=== PATIENT | female | born 1970 | race Caucasian/White ===

== ENCOUNTER → 2023-03-21 09:16 | Outpatient (BNVA) | payer MEDICAID, SELFPAY | PROVIDERS: Visit Provider Podiatrist Foot & Ankle Surgery | DX: M67.471 Ganglion, right ankle and foot (principal); M67.472 Ganglion, left ankle and foot; E11.8 Type 2 diabetes mellitus with unspecified complications; M77.41 Metatarsalgia, right foot; M77.42 Metatarsalgia, left foot; Z79.84 Long term (current) use of oral hypoglycemic drugs | CPT/HCPCS: 73630; 99204 ==

== ENCOUNTER 2023-04-16 07:53 | Outpatient (CLI) | payer MEDICAID, SELFPAY ==
--- NOTE | 2023-04-16 08:00 | MR_ITS ---
WS: [id number] MRI RIGHT FOOT without CONTRAST. COMPARISON: Radiographs 03/21/2023 Multiplanar, multisequence imaging is performed without contrast. Multilobulated cystic mass centered along the dorsal surface of the foot at the level of the proximal fourth and fifth metatarsals. There are several small cystic components. The largest measures 6 mm a nd is slightly smaller measures 4 mm in diameter. There are additional cysts which are smaller than 4 mm. There is a small bony erosion involving the proximal lateral fourth metatarsal which does not ex tend to the joint. There is mild narrowing of the proximal fourth and fifth metatarsal articulation. No fractures or bone destruction. No erosions at the metatarsal heads. There is no definite extension of the cystic collection into the joint. Flexor and extensor groups are normal. No soft tissue abnormalities otherwise. MR/MR foot RT wo con* [id number] IMPRESSION: 1. Multiloculated cystic mass along the dorsal surface of the foot between the fourth and fifth proximal metatarsals. Favor this is probably a multiloculated ganglion. Differential would include bursitis bursitis. 2. No fracture or marrow edema.
== END 2023-04-16 07:54 | disposition home or self-care (01) ==
LOC: RAD 07:54
PROVIDERS: PCP Nurse Practitioner Family; Visit Provider Podiatrist Foot & Ankle Surgery
DX: M67.471 Ganglion, right ankle and foot (principal)
CPT/HCPCS: 73718

== ENCOUNTER 2023-10-11 08:33 | Outpatient (CLI) | payer MEDICAID, SELFPAY ==
--- NOTE | 2023-10-11 08:36 | XRR_ITS ---
PROCEDURE INFORMATION: Exam: XR Left Shoulder Exam date and time: 10/11/2023 8:42 AM Age: 53 years old Clinical indication: Shoulder; Left; Patient HX: Pain and limited rom for about 1 year; Additional info: Pain in left shoulder TECHNIQUE: Imaging protocol: Radiologic exam of the left shoulder. Views: 2 or more views. COMPARISON: No relevant prior studies available. FINDINGS: Bones/joints: No acute fracture or dislocation. Mild acromioclavicular joint arthropathy. Glenohumeral joint is maintained. Soft tissues: Unremarkable. XR/XR shoulder LT min 2V* [id number] IMPRESSION: 1. No acute findings. 2. Mild AC joint arthropathy.
== END 2023-10-11 08:34 | disposition home or self-care (01) ==
LOC: RAD 08:34
PROVIDERS: PCP Nurse Practitioner Family; Visit Provider Nurse Practitioner Family
DX: M19.012 Primary osteoarthritis, left shoulder (principal)
CPT/HCPCS: 73030

== ENCOUNTER 2024-04-04 08:33 | Outpatient (CLI) | payer MEDICAID, SELFPAY ==
--- NOTE | 2024-04-04 08:45 | MR_ITS ---
WS: [id number] MRI LEFT SHOULDER NONCONTRAST TECHNIQUE: Sagittal T2, coronal T1, T2 and proton density imaging. Axial gradient PDE imaging. CLINICAL INFORMATION: Rotator cuff impingement COMPARISON: None. FINDINGS: Moderate degenerative arthritis AC joint with subacromial spurring. Mild narrowing of the subacromial space. Slight impingement on the distal supraspinatus. Tendinopathy distal supraspinatus. Mild chron ic thinning of the supraspinatus. Normal infraspinatus. Normal teres minor. Normal subscapularis. Bic eps tendon appears intact within the bicipital groove. Intra-articular biceps tendon appears intact. Biceps labral anchor appears intact. Normal bone marrow signal in the humerus and glenoid. MR/MR shoulder LT wo con* [id number] IMPRESSION: 1. Moderate degenerative arthritis AC joint with mild edema. 2. Subacromial spurring with impingement on the supraspinatus with tendinopath y. Mild chronic thinning of the supraspinatus. 3. Rotator cuff is otherwise normal and intact. 4. Normal biceps tendon in the bicipital groove. 5. No other acute findings.
== END 2024-04-04 08:34 | disposition home or self-care (01) ==
LOC: RAD 08:33
PROVIDERS: PCP Nurse Practitioner Family; Visit Provider Physician Assistant
DX: M75.42 Impingement syndrome of left shoulder (principal); M19.012 Primary osteoarthritis, left shoulder; M75.92 Shoulder lesion, unspecified, left shoulder
CPT/HCPCS: 73221

== ENCOUNTER 2024-04-29 12:29 | Outpatient (CLI) | payer MEDICAID, SELFPAY ==
--- NOTE | 2024-04-29 | ECG_ITS ---
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 Interpretive Statements NAME OF STUDY: TREADMILL STRESS ECHOCARDIOGRAM INDICATION: Chest Pressure, PROCEDURE: At the baseline, the patient's blood pressure was 122/81 with a heart rate of 101. The baseline electrocardiogram showed normal sinus rhythm with nonspecific T wave changes. The patient exercised for 5 minutes and 28 seconds on a standard Vince protocol. Patient attained a maximum heart rate of 163 beats per minute(98% of the maximum predicted heart rate) with a blood pressure at the peak exercise of 181/87 mm Hg. The EKG at the peak exercise revealed no significant changes. Patient did not have any chest pain or any significant cardiac arrhythmias with the exercise During the recovery phase, there were no new changes. Blood pressure at the end of the recovery phase was 127/60 mm Hg with a heart rate of 97 per minute. CONCLUSION: 1. Normal EKG response to treadmill exercise 2. No exercise-induced chest pain or cardiac arrhythmia 3. Slightly impaired exercise tolerance, attained a maximum of 7.0 METs Electronically Signed On 05-01-2024 23:06:32 CDT by Ryan Snow M.D. [email or web address]
--- NOTE | 2024-04-29 12:49 | USCV_ITS ---
Leticia Villalta Age: 53 Gender: F : 1970 Exam Date: 04/29/2024 12:58 Ordering Phys: Citlali Salguero NP Technologist: Exam Location: [facility] Indication: CHEST PRESSURE Rhythm: Sinus Patient History: DM, CURRENT SMOKER Cardiac Medications: ARB Medications in past 24 hours: NONE Contrast: Stress Results Protocol: Vince Total dose(mL): Exercise Duration (min:sec): 5:28 METS: 7 Resting HR: 76 Resting BP: 121 / 81 Peak HR: 163 Peak BP: 187 / Max Predicted HR: 166 98 % Max Predicted HR Target HR: 141 Double Product: 04116 Stress Summary: SOB THAT RESOLVED DURING RECOVERY BP Response: NORMAL Reason for Termination: TARGET HR REACHED Cardiac Symptoms: SOB ECG Analysis Resting ECG: Please see separate report Stress ECG: Please see separate report Arrhythmia: Please see separate report MEASUREMENTS (Male/Female) Normal Values FINDINGS The baseline echocardiogram revealed normal LV size and ejection fraction of 55%. Segmental wall motion analysis revealed no gross Significant or wall motion normalities. The aortic root appeared to be of normal size. No gross morphologic abnormalities were noted at the mitral valve With the peak exercise there was good augmentation of all the segments with no exercise-induced wall motion abnormalities. During the recovery phase, no new abnormalities were noted CONCLUSIONS 1. Normal echocardiographic response to treadmill exercise. 2. Low probability for significant coronary ischemia based on the above findings Dr Ryan Snow MD [facility] (Electronically Signed) Final Date: 30 April 2024 09:56 S
[2024-04-29 13:19] VITALS: BP 127/60; PULSE 86
== END 2024-04-29 12:30 | disposition home or self-care (01) ==
LOC: CDL 12:30
PROVIDERS: PCP Nurse Practitioner Family; Visit Provider Nurse Practitioner Family
DX: E11.9 Type 2 diabetes mellitus without complications (principal); R07.89 Other chest pain; I10 Essential (primary) hypertension; Z72.0 Tobacco use
CPT/HCPCS: 93017; 93350

== ENCOUNTER 2024-05-07 07:06 | Day surgery (SDC) | payer MEDICAID, SELFPAY ==
[2024-05-07 07:31] VITALS: BP 123/76; PULSE 80; RESP 18; TEMP 36.3; O2SAT 95; BMI 41.0
--- NOTE | 2024-05-07 07:34 | P.ANESASSM_ITS ---
Pre-Anesthetic Assessment Height/Weight: Height 1.73 m Preop Diagnosis: Difficulty swallowing Operation Date: 05/07/24 08:15 Proposed Procedures p EGD Dilation W/ Balloon 01329, 40096, G0121, R13.10, K21.9, Z12.11(Not Applicable) - DO dusty Flores Colonoscopy(Not Applicable) - Darian Sparks DO Familial anesthetic complications: none Was Beta Zac taken within 24 hours: N/A Was Clonidine taken within 24 hours: N/A Last Intake: 22:00 Social Tobacco and No alcohol 1/2 PPD pack(s) per day Airway Submandibular: within normal limits Cervical ROM: within normal limits Mallampati: Class II Dentition: full History/ROS No significant history except as noted and No significant complaints Pulmonary None reported CV/HEM None reported None reported Hepatic None reported GI Gastroesophageal Reflux Disease Metabolic Diabetes Mellitus [facility] None reported Neuropsych None reported Anesthetic Plan ASA status: 2 Anesthesia: MAC Medications/Allergies Home Medications Medication Instructions Recorded Confirmed Last Taken Type glipizide 10 mg tablet, extended 10 mg PO BID 11/23/22 05/05/24 05/06/24 History release 24 hr losartan 50 mg tablet 50 mg PO DAILY 11/23/22 05/05/24 05/06/24 History lovastatin 20 mg tablet 20 mg PO DAILY 11/23/22 05/05/24 05/06/24 History metformin 1,000 mg tablet 500 mg PO BID 11/23/22 05/05/24 05/05/24 History liraglutide 0.6 mg/0.1 mL (18 mg/3 1.8 mg SUBCUT DAILY 12/21/23 05/05/24 05/05/24 History mL) subcutaneous pen injector (Victoza 2-Kvng) pantoprazole 40 mg tablet,delayed 40 mg PO BID 6 weeks #84 tabs 03/24/24 05/05/24 05/06/24 Rx release (Protonix) Allergies Allergy/AdvReac Type Severity Reaction Status Date / Time iodine Allergy Mild hives Verified 05/07/24 07:30 [facility] Anesthesia Social History Smoking and tobacco/nicotine status: unknown if used tobacco/nicotine Alcohol intake: current Alcohol intake frequency: holidays/special occasions only Data Anesthesia Cardiac Studies: Stress Echocardiogram 04/29/24
[2024-05-07] MEDS: sodium chloride 0.9% 1,000 ML 30 ML IV (07:41)
[2024-05-07 07:56] LABS: Glucose Point of Care 264 mg/dL (70-110)
--- NOTE | 2024-05-07 08:43 | P.HP_ITS ---
Providers/Chief Complaint Primary Care Provider: Citlali Salguero NP Chief Complaint: R13.10 History of Present Illness Leticia Villalta is a 53 year old female Review of Systems General: Reports: 10 or more systems reviewed and unremarkable except in HPI and below Medications/Allergies Home Medications Medication Instructions Recorded Confirmed Last Taken Type glipizide 10 mg tablet, extended 10 mg PO BID 11/23/22 05/05/24 05/06/24 History release 24 hr losartan 50 mg tablet 50 mg PO DAILY 11/23/22 05/05/24 05/06/24 History lovastatin 20 mg tablet 20 mg PO DAILY 11/23/22 05/05/24 05/06/24 History metformin 1,000 mg tablet 500 mg PO BID 11/23/22 05/05/24 05/05/24 History liraglutide 0.6 mg/0.1 mL (18 mg/3 1.8 mg SUBCUT DAILY 12/21/23 05/05/24 05/05/24 History mL) subcutaneous pen injector ([employer] 2-Kvng) pantoprazole 40 mg tablet,delayed 40 mg PO BID 6 weeks #84 tabs 03/24/24 05/05/24 05/06/24 Rx release (Protonix) Allergies Allergy/AdvReac Type Severity Reaction Status Date / Time iodine Allergy Mild hives Verified 05/07/24 07:30 PFSH Acute PFSH: Social History Smoking and tobacco/nicotine status: unknown if used tobacco/nicotine Alcohol intake: current Alcohol intake frequency: holidays/special occasions only Vitals/I&O/Wt Last Vital Signs Temp 97.4 F L 05/07/24 07:31 Pulse 80 05/07/24 07:31 Resp 18 05/07/24 07:31 BP 123/76 05/07/24 07:31 Pulse Ox 95 05/07/24 07:31 O2 Del Method Room Air 05/07/24 07:31 Weight last 48 hrs Weight 270 lb A&P Assessment and plan (1) Dysphagia: (2) GERD (gastroesophageal reflux disease): (3) Colon cancer screening: Plan EGD with possible balloon dilation Screening colonoscopy Attestations Medical Necessity Statement*: home Coding Level of Care Code Acute Code for Chg Fwd Diagnoses Dysphagia R13.10 GERD (gastroesophageal reflux disease) K21.9 Colon cancer screening Z12.11
[2024-05-07 09:14] VITALS: BP 108/68; PULSE 94; RESP 18; TEMP 36.6; O2SAT 93
[2024-05-07] MEDS: EPINEPHrine 1 mg/mL INJ XX (09:23)
[2024-05-07 09:30] VITALS: BP 134/82; PULSE 88; RESP 16; O2SAT 93
--- NOTE | 2024-05-07 09:45 | ANE.PACU2 ---
Inpatient post-anesthesia follow up: Airway intact: Yes Vital signs: Temperature 97.8 F Pulse Rate 88 Respiratory Rate 16 Blood Pressure 134/82 Pulse Oximetry 93 Oxygen Delivery Me thod Room Air Oxygen Flow Rate Fraction of Inspir ed Oxygen Hydration adequate: Yes Nausea and vomiting: No Pain level: 1 Mental status: Baseline
== END 2024-05-07 09:48 | disposition home or self-care (01) ==
PROVIDERS: PCP Nurse Practitioner Family; Visit Provider Surgery
PROC: 0DJD8ZZ Inspection of Lower Intestinal Tract, Via Natural or Artificial Opening Endoscopic (ICD-10-PCS; CPT 45378; 2024-05-07 08:15)
DX: Z12.11 Encounter for screening for malignant neoplasm of colon (principal); K21.9 Gastro-esophageal reflux disease without esophagitis; R13.10 Dysphagia, unspecified; K20.90 Esophagitis, unspecified without bleeding; K63.5 Polyp of colon; K22.2 Esophageal obstruction; I85.00 Esophageal varices without bleeding; E11.9 Type 2 diabetes mellitus without complications
CPT/HCPCS: 36416; 43239; 43249; 45378; 82962; 88305; J0171; J2704; J3490; J7030

== ENCOUNTER 2024-08-13 16:11 | Outpatient (CLI) | payer MEDICAID, SELFPAY ==
--- NOTE | 2024-08-13 16:19 | XR_ITS ---
WS: [id number] Left knee, AP and lateral views, 08/13/2024 Clinical Data: LEFT KNEE PAIN Comparison: None. Findings: No fractures or dislocations are seen. There is minimal medial joint compartment narrowing. The ramirez lla is intact with a small anterior superior spur. The soft tissues are unremarkable. Minimal vascular calcification is present. XR/XR knee LT 1-2V [id number] Impression: Minimal medial joint compartment narrowing of the left knee. Kellgren-Valentino Classification: grade 1 (doubtful): doubtful joint space narr owing and possible osteophytic lipping
== END 2024-08-13 16:12 | disposition home or self-care (01) ==
LOC: RAD 16:14
PROVIDERS: PCP Nurse Practitioner Family; Visit Provider Nurse Practitioner Family
DX: M25.562 Pain in left knee (principal)
CPT/HCPCS: 73560

== ENCOUNTER 2025-04-09 07:18 | Outpatient (CLI) | payer MEDICAID, SELFPAY ==
--- NOTE | 2025-04-09 07:23 | US_ITS ---
WS: [id number] RIGHT UPPER QUADRANT ULTRASOUND HISTORY: FATTY LIVER DZ,NONALCOHOLIC/DM TYPE 2 COMPARISON: None available. Liver: 15.1 cm in length. Coarse echotexture throughout the liver. No mass. Portal Vein: Normal hepatopetal flow with monophasic waveform. Gallbladder: Prior cholecystectomy. CBD: 0.4 cm Pancreas: Normal size and echogenicity. Right kidney: 12.6 cm in length. Normal size and echogenicity. No hydronephrosis or mass. Aorta and IVC: Unremarkable abdominal aorta and IVC. No ascites. US/US abdomen limited [id number] IMPRESSION: 1. Prior cholecystectomy. 2. Normal size liver with moderate hepatic steatosis.
== END 2025-04-09 07:19 | disposition home or self-care (01) ==
PROVIDERS: PCP Nurse Practitioner Family; Visit Provider Nurse Practitioner Family
DX: K76.0 Fatty (change of) liver, not elsewhere classified (principal); E11.9 Type 2 diabetes mellitus without complications; R74.8 Abnormal levels of other serum enzymes; Z90.49 Acquired absence of other specified parts of digestive tract
CPT/HCPCS: 76705

== ENCOUNTER 2025-04-14 20:36 | Emergency (ER) | payer MEDICAID, SELFPAY ==
[2025-04-14 20:38] VITALS: BP 133/103; PULSE 93; RESP 17; TEMP 36.7; O2SAT 96; BMI 41.8
--- OUTSIDE RECORDS SUMMARY | 2025-04-14 20:39 | XMS_ITS | Clinical Summary ---
Author Organization [facility] Address [address] [address] Phone Care Team Providers Care Operations Manager/Coordinator Name Role Phone Citlali Salguero JUD Primary Care Provider [phone] Social History Tobacco Use Types Packs/Day Years Used Date Smoking Tobacco: Never Assessed Comments Unknown Sex and Gender Information Value Date Recorded Sex Assigned at Not on file Legal Sex Female 2:11 PM CDT Gender Identity Not on file Sexual Orientation Not on file Plan of Treatment Health Maintenance Due Date Last Done Comments DTAP/TDAP/TD VACCINES (1 - Tdap) 1988 HEPATITIS B VACCINES (1 of 3 - 19+ 3-dose series) 08/16 HPV/Cotest (21-29) 1990 CERVICAL CANCER SCREENING 1999 HPV/Cotest (30-65) 1999 PAP SMEAR 1999 BREAST CANCER SCREENING 2009 COLORECTAL SCREENING 2014 Colorectal Cancer Screening 2014 FIT-DNA Q 3 years 2014 FIT/FOBT Q 1 year 2014 Flex Sig/CT Colonography Q 5 years 2014 ZOSTER VACCINE (1 of 2) 2019 INFLUENZA VACCINE (#1) 2024 Insurance [facility] [id number] Care Teams Operations Manager/Coordinator Relationship Specialty Start Date End Date Citlali Salguero FNP [address] [place] [address] PCP - General Nurse Practitioner Family 06/21/21
--- OUTSIDE RECORDS SUMMARY | 2025-04-14 20:39 | XMS_ITS | Patient Health Record ---
Author Organization [facility] Address [address] [facility] [address] [place] [address] Care Team Providers Care Manager Core Name Role Phone Lia Quinones Primary Care Provider Unavail able Ricky Bedoya Unavailable [phone] Allergies Allergen (clinical drug ingredient) Drug/Non Drug Allergy documented on EMR Reaction Allergy Type Onset Date Status Isovue-300 Unknown Drug Allergy Active Reason For Referral No Information Medications Medication SIG (Take, Route, Frequency, Duration) Notes Start Date End Date Status Esomeprazole Magnesium 20 MG 1 capsule Orally Once a day Active Metformin 1 tab Oral Active Lovastatin 10 MG 1 tablet with a meal Orally Once a day Active glipiZIDE 10 MG 1 tablet Orally Once a day Active Wellbutrin 100 MG 1 tablet Orally Twic e a day Active Valsartan 80 MG 1 tablet Orally Once a day Active Social History Tobacco Use: Social History Observation Description Date Details (start date - stop date) Never Smoker NA - NA Tobacco Use: Question Answer Notes Are you a: non smoker Problems Problem Type SNOMED Code ICD Code Onset Dates Problem Status W/U Status Risk Notes Problem Low back pain (519190862) Low back pain (M54.5) Active confirmed Problem Lumbosacral radiculopathy (4567151) Intervertebral disc disorders with radiculopathy, lumbosacral region (M51.17) Active confirmed Plan Of Treatment Pending Test Test Name Order Date MRI : Lumbosacral Spine 08/13/2015 Insurance Providers Payer Name Payer Address Payer Phone Subscriber Number Group Number Insured Name Patient Relationship to Insured Coverage Start Date Coverage End Date [facility] [address] [address] [place] [address] [id number] Leticia Villalta Self - patient is the insured Medical (General) History Medical History History ICD Code hypertension, benign Diabetes Surgical History Surgery Date(Month/Year) tonsillectomy hernia gall bladder
--- NOTE | 2025-04-14 20:43 | ECG_ITS ---
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 Measurements Intervals [place] Rate: 94 P: 61 IN: 142 QRS: 58 QRSD: 85 T: 54 QT: 334 QTc: 418 Interpretive Statements SINUS RHYTHM WITH MARKED SINUS ARRHYTHMIA No previous ECG available for comparison Electronically Signed On 04-16-2025 08:58:52 CDT by Elder Orr M.D. [email or web address]
--- NOTE | 2025-04-14 20:43 | XRR_ITS ---
PROCEDURE INFORMATION: Exam: XR Chest Exam date and time: 04/14/2025 8:51 PM Age: 54 years old Clinical indication: Chest wall pain; Additional info: Cp TECHNIQUE: Imaging protocol: Radiologic exam of the chest. Views: 1 view. COMPARISON: shoulder LT wo con* [id number] 04/04/2024 8:50 AM FINDINGS: Lungs: Patchy opacities along the periphery of the left lung base including along the costophrenic angle. The right lung is clear. Pleural spaces: Unremarkable. No pleural effusion. No pneumothorax. Heart/Mediastinum: Unremarkable. No cardiomegaly. Bones/joints: Unremarkable. XR/XR chest 1V portable [id number] IMPRESSION: Left basilar opacities could represent confluence of shadows with overlying soft tissue, though pulmonary infiltrate can not be excluded.
--- NOTE | 2025-04-14 21:20 | W.ED.CHESTPA ---
HPI - Chest Pain General: Chief Complaint: Chest Pain Stated Complaint: chest pressure Time Seen by Provider: 04/14/25 20:56 History of Present Illness: Patient is a 54-year-old female history of HLD, DM, presents to emergency room with on and off chest pressure x 2.5 weeks. Today, she had chest pain this morning about 11?11 30. It was a pressure sensation in the central area of her chest that penetrated through to her back. This was self resolving. This evening approximately 8 PM, she started having the same chest like pressure in the central area of her chest as the feeling of someone was poking her in the back. This was associated with mild nausea, and shortness of breath. Given the change in the chest pain, she reported to the ED for further evaluation. She does not have history of coronary artery disease. She has multiple risk factors with HLD, DM, obesity. She denies any recent cold or illness. No fevers. She is a non-smoker. Associated symptoms: Reports dyspnea and nausea; Deny abdominal pain, fever(s), palpitations, syncope or vomiting Related Data Home Medications ?Medication ?Instructions ?Recorded ?Confirmed glipizide 10 mg tablet, extended 10 mg PO BID 11/23/22 06/02/24 release 24 hr losartan 50 mg tablet 50 mg PO DAILY 11/23/22 06/02/24 lovastatin 20 mg tablet 20 mg PO DAILY 11/23/22 06/02/24 metformin 1,000 mg tablet 500 mg PO BID 11/23/22 06/02/24 liraglutide 0.6 mg/0.1 mL (18 mg/3 1.8 mg SUBCUT DAILY 12/21/23 06/02/24 mL) subcutaneous pen injector (Victoza 2-Kvng) Previous Rx's ?Medication ?Instructions ?Recorded pantoprazole 40 mg tablet,delayed 40 mg PO BID 6 weeks #84 tabs 03/24/24 release (Protonix) doxycycline hyclate 100 mg capsule 100 mg PO BID 14 days #28 caps 04/14/25 Allergies Allergy/AdvReac Type Severity Reaction Status Date / Time iodine Allergy Mild hives Verified 06/02/24 15:40 Review of Systems General: Reports: 10 or more systems reviewed and unremarkable except in HPI and below Const: Denies: fever(s) or chills Eyes: Denies: change in vision or blurry vision ENMT: Denies: throat pain or mouth pain Card: Reports: chest pain; Denies: palpitations, irregular heart rhythm, edema, lightheadedness or syncope Resp: Reports: dyspnea; Denies: non-productive cough GI: Reports: nausea; Denies: abdominal pain or vomiting : Denies: flank pain or difficulty voiding Musc: Denies: neck pain, back pain or extremity pain Skin/Breast: Denies: rash or pruritus Neuro: Denies: headache(s) or numbness in extremities Psych: Denies: anxiety or depression PFSH ED PFSH: Social History Smoking and tobacco/nicotine status: former use of tobacco/nicotine Alcohol intake: current Alcohol intake frequency: holidays/special occasions only Physical Exam Const: COMMON NORMALS: patient oriented x3 HENMT: COMMON NORMALS: normocephalic and atraumatic HEAD & SCALP: normocephalic and atraumatic Eye: COMMON NORMALS: Equal, round and reactive pupils present, EOMs intact bilaterally, conjunctivae normal, no scleral icterus, no papilledema, normal visual guerrero by confrontation and fundi normal bilaterally CONJUNCTIVA: Yes conjunctivae normal PUPIL: Yes Equal, round and reactive pupils present DIRECT OPHTHALMOSCOPY: Yes no papilledema and Yes fundi normal bilaterally Neck/C-Spine: COMMON NORMALS: full ROM, no lymphadenopathy, supple, no meningeal signs, no JVD, Thyroid normal and No carotid bruits THYROID: Thyroid normal Lymph: LYMPHATIC: no lymphadenopathy noted Chest: COMMONS NORMALS: normal inspection of the chest, normal palpation of entire chest wall, normal inspection of the breasts and normal palpation of the breasts Breast/axilla inspection: Yes normal inspection of the breasts BREAST/AXILLA PALPATION: Yes normal palpation of the breasts Resp: COMMON NORMALS: normal respiratory effort, No retractions, No use of accessory muscles, clear to auscultation bilaterally and percussion normal AUSCULTATION: clear to auscultation bilaterally PERCUSSION: percussion normal Cardio: COMMON NORMALS: no JVD, regular rate, regular rhythm, S1 normal heart sound present, S2 normal heart sound present, No gallops present (Cardio), No clicks present (Cardio), No murmurs present (Cardio), No rub (Cardio) and Peripheral pulses 2+ throughout RATE: regular rate RHYTHM: regular rhythm HEART SOUNDS: S1 normal heart sound present and S2 normal heart sound present PERIPHERAL PULSES: Peripheral pulses 2+ throughout GI: COMMON NORMALS: Normal to inspection, nondistended, normoactive bowel sounds present, Soft to palpation, non-tender, No hepatosplenomegaly present, no masses and no bruits PALPATION: Yes Soft to palpation and Yes No hepatosplenomegaly present : COMMON NORMALS: Yes no CVA tenderness BLADDER/KIDNEY EXAM: Yes no CVA tenderness Back/Pelvis: COMMON NORMALS: no CVA tenderness Extremity: COMMON NORMALS: normal to inspection, full ROM, capillary refill normal, no joint enlargement, no clubbing, cyanosis or edema, no calf tenderness and no pedal edema Neuro: COMMON NORMALS: patient oriented x3 and CN's II-XII intact bilaterally MENINGEAL SIGNS: Yes no meningeal signs Psych: COMMON NORMALS: mental status grossly normal and Normal thought process present THOUGHT PROCESS: Normal thought process present Skin: COMMON NORMALS: no rashes or lesions noted and no wounds GENERAL SKIN EXAM: no rashes or lesions noted Course Vital Signs: Vital signs: Vital Signs Temperature 98.0 F 04/14/25 20:38 Pulse Rate 97 04/14/25 22:59 Respiratory Rate 16 04/14/25 22:59 Blood Pressure 155/90 04/14/25 22:59 Pulse Oximetry 95 04/14/25 22:59 Oxygen Delivery Me thod Room Air 04/14/25 22:00 MDM - Chest Pain Medical Decision Making Patient is a 54-year-old female that presents with atypical chest discomfort. This was worse tonight associated with shortness of breath. She does have association leukopenia, transaminitis, and thrombocytopenia. Will check for COVID. Initial troponin is negative, and patient is outside of 10-hour window since she had the chest pain, thus ruling her out from an ACS standpoint. Her D-dimer is negative, ruling out thrombotic association. If COVID is negative, will treat for tickborne. I checked on tickborne panel here, and the send out does not include Ehrlichia PCR, therefore it is somewhat futile to obtain this testing. There is RMSF available, however typically does not go with this prodrome Lab Data 04/14/25 21:21 04/14/25 21:21 Radiology Impressions Chest X-Ray 04/14/25 20:43 IMPRESSION: Left basilar opacities could represent confluence of shadows with overlying soft tissue, though pulmonary infiltrate can not be excluded. Laboratory Results WBC 2.97 10^3/uL (3.29-11.43) L 04/14/25 21:21 RBC 4.44 10^6/uL (3.85-5.65) 04/14/25 21:21 Hgb 12.30 g/dL (11.27-16.99) 04/14/25 21:21 Hct 38.7 % (36-47) 04/14/25 21:21 MCV 87.2 fl (85-98) 04/14/25 21:21 MCH 27.7 pg (27-33) 04/14/25 21:21 MCHC 31.8 g/dL (30-55) 04/14/25 21:21 RDW 14.5 % (12.1-15.1) 04/14/25 21:21 Plt Count 96 10^3/cmm (157-399) L 04/14/25 21:21 MPV 9.9 fL (7.4-10.4) 04/14/25 21:21 Neut % (Auto) 53.9 % 04/14/25 21:21 Lymph % (Auto) 37.0 % 04/14/25 21:21 [place] % (Auto) 5.7 % 04/14/25 21:21 Eos % (Auto) 2.7 % 04/14/25 21:21 Baso % (Auto) 0.7 % 04/14/25 21:21 Neut # (Auto) 1.60 10^3/uL (1.8-7.7) L 04/14/25 21:21 Lymph # (Auto) 1.1 10^3/uL (0.8-4.8) 04/14/25 21:21 [place] # (Auto) 0.2 10^3/uL (0.2-0.9) 04/14/25 21:21 Eos # (Auto) 0.1 10^3/uL (0.0-0.8) 04/14/25 21:21 Baso # (Auto) 0.0 10^3/uL (0.0-0.1) 04/14/25 21:21 Nucleated RBC % (auto) 0 % 04/14/25 21:21 Nucleated RBCs # 0.0 /100WBC 04/14/25 21:21 PT 15.00 SECONDS (12.1-14.9) H 04/14/25 21:21 INR 1.11 (0.8-1.2) 04/14/25 21:21 D-Dimer 0.34 ug/mLFEU (0-0.59) 04/14/25 21:21 Sodium 138 mmol/L (136-145) 04/14/25 21:21 Potassium 4.1 mmol/L (3.5-5.1) 04/14/25 21:21 Chloride 101 mmol/L (98-107) 04/14/25 21:21 Carbon Dioxide 24 mmol/L (22-29) 04/14/25 21:21 Anion Gap 17.1 (5-19) 04/14/25 21:21 BUN 12 mg/dL (6-20) 04/14/25 21:21 Creatinine 0.6 mg/dL (0.5-0.9) 04/14/25 21:21 GFR Calculation 103.8 mL/min (90-130) 04/14/25 21:21 Glucose 412 mg/dL (65-115) H 04/14/25 21:21 Calculated Osmolality 303 mOsm/kg (285-295) H 04/14/25 21:21 Calcium 9.4 mg/dL (8.5-10.5) 04/14/25 21:21 Total Bilirubin 0.7 mg/dL (0.15-1.2) 04/14/25 21:21 AST 37 U/L (0-32) H 04/14/25 21:21 ALT 50 U/L (0-33) H 04/14/25 21:21 Alkaline Phosphatase 165 U/L (35-105) H 04/14/25 21:21 Troponin T Baseline < 6 ng/L (0-10) 04/14/25 21:21 Total Protein 6.3 g/dL (6.6-8.7) L 04/14/25 21:21 Albumin 3.9 g/dL (3.5-5.2) 04/14/25 21:21 Globulin 2.4 g/dL (1.3-4.6) 04/14/25 21:21 Lipase 36 U/L (13-60) 04/14/25 21:21 Influenza A (PCR) Negative (Negative) 04/14/25 21:56 Influenza Type B (PCR) Negative (Negative) 04/14/25 21:56 RSV (PCR) Negative (Negative) 04/14/25 21:56 SARS-CoV-2 (PCR) Negative (Negative) 04/14/25 21:56 All radiology interpretation(s) finalized by discharge Discharge Plan Discharge Patient Disposition: Home Clinical Impression: Thrombocytopenia, Transaminitis, Atypical chest pain Leukopenia Qualifiers: Leukopenia type: neutropenia Neutropenia type: unspecified Qualified Code(s): D70.9 - Neutropenia, unspecified Uncontrolled diabetes mellitus Qualifiers: Diabetes mellitus type: type 2 Glycemic state: with hyperglycemia Qualified Code(s): E11.65 - Type 2 diabetes mellitus with hyperglycemia Condition: Stable Prescriptions: New doxycycline hyclate 100 mg capsule 100 mg PO BID 14 Days Qty: 28 0RF No Action metformin 1,000 mg tablet 500 mg PO BID losartan 50 mg tablet 50 mg PO DAILY glipizide 10 mg tablet extended release 24hr 10 mg PO BID lovastatin 20 mg tablet 20 mg PO DAILY pantoprazole [Protonix] 40 mg tablet,delayed release (DR/EC) 40 mg PO BID 42 Days Qty: 84 1RF Victoza 2-Kvng 0.6 mg/0.1 mL (18 mg/3 mL) pen injector 1.8 mg SUBCUT DAILY Discharge Orders: Discharge ED (Routine); Ordered 04/14/25 Ordered By: Rona Baxter Referrals: Citlali Salguero NP [Primary Care Provider, Unknown] Discharge Diet: Diabetic and Clear Liquid Discharge Activity: Resume usual activity Patient Instructions: Tick Bite (ED), Patient Portal & Talat Instructions Activity Restrictions/Additional Instructions: Return to your doctor for follow-up regarding the chest pain, and your laboratory data as we discussed: High blood glucose, low platelets Take blood glucose tomorrow. Consider nonconcentrated clear liquid diet until blood glucose improves Return to ED for worsening or ongoing pain. No acute findings with your heart were found today. This means you may need to follow-up with your primary care physician regarding additional testing for blockage. This does not rule out blockage, however you do not have any acute issues going on. Return to ED for chest pain. Print Language: Citizen Of [place] Coding Level of Care Code ED Blood Donor Recruiter for Gabby Sanchez
[2025-04-14 21:25] VITALS: BP 128/88; PULSE 93; RESP 16; O2SAT 94
[2025-04-14 21:27] LABS: Hematocrit 38.7 % (36-47); Hemoglobin 12.30 g/dL (11.27-16.99); Mean Corpuscular HGB Conc 31.8 g/dL (30-55); Mean Corpuscular Hemoglobin 27.7 pg (27-33); Mean Corpuscular Volume 87.2 fl (85-98); Nucleated Red Blood Cells % 0 %; Platelet Count 96 10^3/cmm (157-399); Red Blood Count 4.44 10^6/uL (3.85-5.65); White Blood Count 2.97 10^3/uL (3.29-11.43)
[2025-04-14 21:40] LABS: INR 1.11 (0.8-1.2); Prothrombin Time 15.00 SECONDS (12.1-14.9)
[2025-04-14 21:45] LABS: Troponin(5th) Baseline < 6 ng/L (0-10)
[2025-04-14 21:47] LABS: Alanine Aminotransferase 50 U/L (0-33); Albumin Level 3.9 g/dL (3.5-5.2); Alkaline Phosphatase 165 U/L (35-105); Anion Gap 17.1 (5-19); Aspartate Amino Transferase 37 U/L (0-32); Blood Urea Nitrogen 12 mg/dL (6-20); Calcium 9.4 mg/dL (8.5-10.5); Carbon Dioxide 24 mmol/L (22-29); Chloride 101 mmol/L (98-107); Creatinine Clr Calc Pharmacy 147.5693; Globulin 2.4 g/dL (1.3-4.6); Glucose 412 mg/dL (65-115); Lipase 36 U/L (13-60); Osmolality Calculated 303 mOsm/kg (285-295); Potassium 4.1 mmol/L (3.5-5.1); Sodium 138 mmol/L (136-145); Total Protein 6.3 g/dL (6.6-8.7)
[2025-04-14 22:00] VITALS: BP 155/90; PULSE 92; RESP 16; O2SAT 95
[2025-04-14 22:38] LABS: Respiratory Syncytial Virus Ce NEGATIVE (Negative); SARS-CoV-2 PCR NEGATIVE (Negative)
[2025-04-14 22:59] VITALS: BP 155/90; PULSE 97; RESP 16; O2SAT 95
== END 2025-04-14 22:58 | disposition home or self-care (01) ==
PROVIDERS: Emergency Medicine; Emergency Provider Physician Assistant; PCP Nurse Practitioner Family
DX: D69.6 Thrombocytopenia, unspecified (principal); R74.01 Elevation of levels of liver transaminase levels; R07.89 Other chest pain; D70.9 Neutropenia, unspecified; E11.65 Type 2 diabetes mellitus with hyperglycemia; Z79.84 Long term (current) use of oral hypoglycemic drugs; Z11.52 Encounter for screening for COVID-19; Z87.891 Personal history of nicotine dependence; E78.5 Hyperlipidemia, unspecified
CPT/HCPCS: 36415; 71045; 80053; 83690; 84484; 85025; 85378; 85610; 87637; 93005; 99285

== ENCOUNTER 2025-05-17 19:11 | Emergency (ER) | payer MEDICAID, SELFPAY ==
--- NOTE | 2025-05-17 19:13 | XRR_ITS ---
PROCEDURE INFORMATION: Exam: XR Chest Exam date and time: 05/17/2025 7:33 PM Age: 54 years old Clinical indication: Pain; Chest pressure; Additional info: Chest pain radiates to back; RT arm numbness TECHNIQUE: Imaging protocol: Radiologic exam of the chest. Views: 1 view. COMPARISON: CR (CHEST, ) 04/14/2025 8:51 PM FINDINGS: Lungs: Appearance of haziness in the periphery of the lung bases is felt to be secondary to breast attenuation artifact. Allowing for this, no definite consolidation and no overt pulmonary edema. Pleural spaces: No appreciable pleural effusion. No pneumothorax. Heart/Mediastinum: Heart size normal. Bones/joints: Unremarkable. XR/XR chest 1V portable [id number] IMPRESSION: Allowing for breast attenuation artifact, no acute cardiopulmonary findings.
--- NOTE | 2025-05-17 19:16 | ECG_ITS ---
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
--- OUTSIDE RECORDS SUMMARY | 2025-05-17 19:17 | XMS_ITS | Patient Health Record ---
Author Organization [place] [facility] Address [address] [facility] [address] [place] [address] Care Team Providers Care Superintendent Factory Name Role Phone Joni Lia Primary Care Provider Unavail able Ricky Bedoya Unavailable [phone] Allergies Allergen (clinical drug ingredient) Drug/Non Drug [...] Status Risk Notes Problem Low back pain (813799602) Low back pain (M54.5) Active confirmed Problem Lumbosacral radiculopathy (9588652) Intervertebral disc disorders with radiculopathy, lumbosacral region (M51.17) Active confirmed Plan Of Treatment Pending Test Test Name Order Date MRI : Lumbosacral Spine 08/13/2015 Insurance Providers Payer Name Payer Address Payer Phone Subscriber Number Group Number Insured Name Patient Relationship to Insured Coverage Start Date Coverage End Date [facility] [address] [address] [place] [address] [id number] Leticia Villalta Self - patient is the insured Medical (General) History Medical History History ICD Code hypertension, benign Diabetes Surgical History Surgery Date(Month/Year) tonsillectomy hernia gall bladder
--- OUTSIDE RECORDS SUMMARY | 2025-05-17 19:17 | XMS_ITS | Clinical Summary ---
Author Organization [facility] Address [address] [address] Phone Care Team Providers Care Java Grails Developer Name Role Phone Citlali Salguero JUD Primary Care Provider [phone] Social History Tobacco Use Types Packs/Day Years [...] (1 of 2) 2019 INFLUENZA VACCINE (#1) 2025 Insurance [facility] [id number] Care Teams Java Grails Developer Relationship Specialty Start Date End Date Citlali Salguero FNP [address] [place] [address] PCP - General Nurse Practitioner Family 06/21/21
[2025-05-17 19:20] VITALS: BP 135/93; PULSE 95; RESP 18; TEMP 36.6; O2SAT 98; BMI 41.8
--- NOTE | 2025-05-17 19:28 | ED_ITS ---
HPI - Chest Pain 2 General: Chief Complaint: Chest Pain Stated Complaint: Chest pains, Rt arm and back pain Time Seen by Provider: 05/17/25 19:19 History of Present Illness: 54-year-old female presents with pain in her mid back into her right shoulder and anterior chest. She reports been going on for a few days. Patient has some associated nausea. Nothing seems to make it better or worse. She denies any fever or chills. No vomiting. No shortness of breath. Associated symptoms: Reports nausea; Deny fever(s) Related Data Home Medications ?Medication ?Instructions ?Recorded ?Confirmed glipizide 10 mg tablet, extended 10 mg PO BID 11/23/22 06/02/24 release 24 hr losartan 50 mg tablet 50 mg PO DAILY 11/23/2205/15 lovastatin 20 mg tablet 20 mg PO DAILY 11/23/2205/15 metformin 1,000 mg tablet 500 mg PO BID 11/23/2206/02 liraglutide 0.6 mg/0.1 mL (18 mg/3 1.8 mg SUBCUT DAILY 12/21/23 06/02/24 mL) subcutaneous pen injector (Victoza 2-Kvng) Previous Rx's ?Medication ?Instructions ?Recorded pantoprazole 40 mg tablet,delayed 40 mg PO BID 6 weeks #84 tabs 03/24/24 release (Protonix) Allergies Allergy/AdvReac Type Severity Reaction Status Date / Time iodine Allergy Mild hives Verified 06/02/24 15:40 Review of Systems 2 Const: Denies: fever(s) or chills Card: Reports: chest pain GI: Reports: nausea Musc: Reports: back pain (Upper back) and extremity pain PFSH ED 2 PFSH: Social History Smoking and tobacco/nicotine status: former use of tobacco/nicotine Alcohol intake: current Alcohol intake frequency: holidays/special occasions only Physical Exam 2 Const: COMMON NORMALS: no acute distress, patient oriented x3 and alert N UTRITIONAL APPEARANCE: obese morbidly obese Resp: COMMON NORMALS: normal respiratory effort and clear to auscultation bilaterally AUSCULTATION: clear to auscultation bilaterally Cardio: COMMON NORMALS: regular rate and regular rhythm RATE: regular rate RHYTHM: regular rhythm GI: COMMON NORMALS: Soft to palpation and non-tender PALPATION: Yes Soft to palpation Extremity: COMMON NORMALS: normal to inspection, full ROM and capillary refill normal Neuro: COMMON NORMALS: patient oriented x3, moves all extremities, no focal motor deficits and no sensory deficits noted SENSORIUM/ORIENTATION: Yes alert Psych: COMMON NORMALS: mental status grossly normal, Normal thought process present, cooperative and normal affect THOUGHT PROCESS: Normal thought process present Skin: COMMON NORMALS: no rashes or lesions noted GENERAL SKIN EXAM: no rashes or lesions noted Course 2 Vital Signs: Vital signs: Vital Signs Temperature 97.9 F 05/17/25 19:20 Pulse Rate 85 05/17/25 21:56 Respiratory Rate 16 05/17/25 21:56 Blood Pressure 128/66 05/17/25 21:56 Pulse Oximetry 97 05/17/25 21:56 Oxygen Delivery Me thod Room Air 05/17/25 21:00 MDM - Chest Pain Medical Decision Making Patient's diagnostic studies were ordered and reviewed. She has a negative EKG with no acute findings. She had a negative troponin and symptoms been going on for couple days. Patient's symptoms are not consistent with cardiac. Patient's mildly elevated liver enzymes but she reports that that is chronic. Patient otherwise no acute findings. She had negative x-ray. Recommend she follow-up with her primary care provider for further evaluation as some of her symptoms are consistent with paresthesia with pain in her upper back lower neck which could be consistent with some arthritic changes or other etiology. Discussed with her supportive care measures. She was stable and discharged home. Lab Data 05/17/25 19:31 05/17/25 19:31 Radiology Impressions Chest X-Ray 05/17/25 19:13 IMPRESSION: Allowing for breast attenuation artifact, no acute cardiopulmonary findings. Laboratory Results WBC 4.13 10^3/uL (3.29-11.43) 05/17/25 19:31 RBC 4.52 10^6/uL (3.85-5.65) 05/17/25 19:31 Hgb 12.60 g/dL (11.27-16.99) 05/17/25 19:31 Hct 38.1 % (36-47) 05/17/25 19: MCV 84.3 fl (85-98) L 05/17/25 19:31 MCH 27.9 pg (27-33) 05/17/25 19: MCHC 33.1 g/dL (30-55) 05/17/25: RDW 14.6 % (12.1-15.1) 05/17/25: Plt Count 100 10^3/cmm (157-399) L 05/17/25: MPV 9.9 fL (7.4-10.4) 05/17/25: Neut % (Auto) 58.3 % 05/17/25: Lymph % (Auto) 30.3 % 05/17/25: [place] % (Auto) 8.0 % 05/17/25: Eos % (Auto) 2.2 % 05/17/25 Baso % (Auto) 1.0 % 05/17/25 Neut # (Auto) 2.41 10^3/uL (1.8-7.7) 05/17/25: Lymph # (Auto) 1.3 10^3/uL (0.8-4.8) 05/17/25: [place] # (Auto) 0.3 10^3/uL (0.2-0.9) 05/17/25: Eos # (Auto) 0.1 10^3/uL (0.0-0.8) 05/17/25: Baso # (Auto) 0.0 10^3/uL (0.0-0.1) 05/17/25: Nucleated RBC % (auto) 0 % 05/17/25: Nucleated RBCs # 0.0 /100WBC 05/17/25: Sodium 136 mmol/L (136-145) 05/17/25: Potassium 4.1 mmol/L (3.5-5.1) 05/17/25: Chloride 100 mmol/L (98-107) 05/17/25: Carbon Dioxide 25 mmol/L (22-29) 05/17/25: Anion Gap 15.1 (5-19) 05/17/25: BUN 11 mg/dL (6-20) 05/17/25: Creatinine 0.6 mg/dL (0.5-0.9) 05/17/25 19:31 GFR Calculation 103.8 mL/min (90-130) 05/17/25 19:31 Glucose 272 mg/dL (65-115) H 05/17/25 19:31 Calculated Osmolality 291 mOsm/kg (285-295) 05/17/25 19:31 Calcium 9.0 mg/dL (8.5-10.5) 05/17/25 19:31 Total Bilirubin 0.8 mg/dL (0.15-1.2) 05/17/25 19:31 AST 31 U/L (0-32) 05/17/25 19:31 ALT 42 U/L (0-33) H 05/17/25 19:31 Alkaline Phosphatase 179 U/L (35-105) H 05/17/25 19:31 Troponin T Baseline < 6 ng/L (0-10) 05/17/25 19:31 Total Protein 6.5 g/dL (6.6-8.7) L 05/17/25 19:31 Albumin 4.1 g/dL (3.5-5.2) 05/17/25 19:31 Globulin 2.4 g/dL (1.3-4.6) 05/17/25 19:31 Lipase 37 U/L (13-60) 05/17/25 19:31 All radiology interpretation(s) finalized by discharge Discharge Plan Discharge Patient Disposition: Home Clinical Impression: Atypical chest pain, Back pain, Paresthesia of right upper extremity Condition: Stable Prescriptions: No Action metformin 1,000 mg tablet 500 mg PO BID losartan 50 mg tablet 50 mg PO DAILY glipizide 10 mg tablet extended release 24hr 10 mg PO BID lovastatin 20 mg tablet 20 mg PO DAILY pantoprazole [Protonix] 40 mg tablet,delayed release (DR/EC) 40 mg PO BID 42 Days Qty: 84 1RF Victoza 2-Kvng 0.6 mg/0.1 mL (18 mg/3 mL) pen injector 1.8 mg SUBCUT DAILY Discharge Orders: Discharge ED (Routine); Ordered 05/17/25 Ordered By: Nish Doty Referrals: Citlali Salguero, REFRIGERATOR REPAIRMAN [Primary Care Provider, Unknown] Discharge Diet: Usual diet Discharge Activity: Increase activity as tolerated Patient Instructions: Paresthesia (ED), Noncardiac Chest Pain (ED), Opioid Safety, Pain Management, Patient Portal & Talat Instructions Activity Restrictions/Additional Instructions: Please follow-up with your primary care provider for further evaluation. Voltaren/diclofenac and 4% topical lidocaine with menthol cream or gel use as directed on package. Tylenol ibuprofen every 6-8 hours as needed for discomfort. Warm moist heat to upper back. Please consider massage therapy. Print Language: [place] Coding Level of Care Code ED Steward/Stewardess Chief Cargo Vessel for Gabby Sanchez
[2025-05-17 19:40] LABS: Hematocrit 38.1 % (36-47); Hemoglobin 12.60 g/dL (11.27-16.99); Mean Corpuscular HGB Conc 33.1 g/dL (30-55); Mean Corpuscular Hemoglobin 27.9 pg (27-33); Mean Corpuscular Volume 84.3 fl (85-98); Nucleated Red Blood Cells % 0 %; Platelet Count 100 10^3/cmm (157-399); Red Blood Count 4.52 10^6/uL (3.85-5.65); White Blood Count 4.13 10^3/uL (3.29-11.43)
[2025-05-17 19:57] LABS: Troponin(5th) Baseline < 6 ng/L (0-10)
[2025-05-17 19:59] LABS: Alanine Aminotransferase 42 U/L (0-33); Albumin Level 4.1 g/dL (3.5-5.2); Alkaline Phosphatase 179 U/L (35-105); Anion Gap 15.1 (5-19); Aspartate Amino Transferase 31 U/L (0-32); Blood Urea Nitrogen 11 mg/dL (6-20); Calcium 9.0 mg/dL (8.5-10.5); Carbon Dioxide 25 mmol/L (22-29); Chloride 100 mmol/L (98-107); Globulin 2.4 g/dL (1.3-4.6); Glucose 272 mg/dL (65-115); Lipase 37 U/L (13-60); Osmolality Calculated 291 mOsm/kg (285-295); Potassium 4.1 mmol/L (3.5-5.1); Sodium 136 mmol/L (136-145); Total Protein 6.5 g/dL (6.6-8.7)
[2025-05-17 21:00] VITALS: BP 124/89; PULSE 92; RESP 16; O2SAT 93
[2025-05-17 21:56] VITALS: BP 128/66; PULSE 85; RESP 16; O2SAT 97
== END 2025-05-17 21:42 | disposition home or self-care (01) ==
PROVIDERS: Emergency Medicine; Emergency Provider Student in an Organized Health Care Education/Training Program; PCP Nurse Practitioner Family
DX: R07.89 Other chest pain (principal); M54.9 Dorsalgia, unspecified; R20.2 Paresthesia of skin; Z79.84 Long term (current) use of oral hypoglycemic drugs; Z87.891 Personal history of nicotine dependence
CPT/HCPCS: 36415; 71045; 80053; 83690; 84484; 85025; 93005; 96374; 96375; 99285; J1885; J3490